=== PATIENT | female | born 1990 | race Caucasian/White ===

== ENCOUNTER 2017-08-18 19:55 | Emergency (ER) | payer SELFPAY ==
[~2017-08-18] VITALS: Ht 167.6 cm; Wt 77.1 kg
[2017-08-18] MEDS ORDERED: PERCOCET 7.5-31 EACH ORAL (20:07)
[2017-08-18 20:10] VITALS: BP 107/59
[2017-08-18] MEDS ORDERED: Dexamethasone 4mg/ml vial IVP ONE (20:30)
[2017-08-18] MEDS ORDERED: HYDROmorphone 1mg/ml Carpuject IM ONE (20:30)
--- NOTE | 2017-08-18 21:20 | Emergency Room Report ---
History of Present Illness General Chief Complaint: Vomiting Source: Patient (Fermin Pollock MD) Present Illness HPI 26-year-old female presents ED for evaluation. Patient complaining of flank pain with nausea and vomiting for the last 2 days. Pain is sharp, 10 out of 10 , nonradiating. History of Colfax's disease. States that she does not have pain medications at this time. States that when she has a bad flareup she usually requires IV hydration, Zofran, Decadron, pain medications. Denies fevers or chills. Denies chest pain or shortness of breath. No other aggravating relieving factors. Denies any other associated symptoms (Fermin Pollock MD) Allergies: Coded Allergies: PINEAPPLE (Verified Allergy, Unknown, 08/18/17) Patient History Past Medical History: other - addisons Past Surgical History: none Pertinent Family History: none Social History: Denies: smoking, alcohol use, drug use Last Menstrual Period: 2 weeks ago Now: No Immunizations: UTD Reviewed Nursing Documentation: PMH: Agreed; PSxH: Agreed (Fermin Pollock MD) Review of Systems All Other Systems: negative except mentioned in HPI (Fermin Pollock MD) Physical Exam Vital Signs Date Time Temp Pulse Resp B/P (MAP) Pulse Ox O2 Delivery O2 Flow Rate FiO2 08/18/17 20:01 97.9 110 18 107/59 97 Room Air 97.9 Sp02 EP Interpretation: reviewed, normal General Appearance: alert, GCS 15, non-toxic, mild distress Head: normocephalic, atraumatic Eyes: bilateral eye normal inspection, bilateral eye PERRL ENT: hearing grossly normal, normal pharynx, no angioedema, normal voice Neck: full range of motion, supple/symm/no masses Respiratory: chest non-tender, lungs clear, normal breath sounds, speaking full sentences Cardiovascular #1: regular rate, rhythm, no edema Cardiovascular #2: 2+ carotid (R), 2+ carotid (L), 2+ radial (R), 2+ radial (L) , 2+ dorsalis pedis (R), 2+ dorsalis pedis (L) Gastrointestinal: normal bowel sounds, non tender, soft, non-distended, no guarding, no rebound Rectal: deferred Genitourinary: normal inspection, no CVA tenderness Musculoskeletal: back normal, gait/station normal, normal range of motion, non- tender Neurologic: alert, oriented x3, responsive, motor strength/tone normal, sensory intact, speech normal Psychiatric: judgement/insight normal, memory normal, mood/affect normal, no suicidal/homicidal ideation Reflexes: 3+ bicep (R), 3+ bicep (L), 3+ tricep (R), 3+ tricep (L), 3+ knee (R) , 3+ knee (L) Skin: normal color, no rash, warm/dry, well hydrated Lymphatic: no adenopathy (Fermin Pollock MD) Medical Decision Making Diagnostic Impression: Primary Impression: Vomiting Qualified Codes: R11.2 - Nausea with vomiting, unspecified Additional Impressions: Chronic pain Qualified Codes: G89.4 - Chronic pain syndrome Opiate dependence Qualified Codes: F11.20 - Opioid dependence, uncomplicated UTI (urinary tract infection) Qualified Codes: N30.00 - Acute cystitis without hematuria ER Course Patient signout to me. She presents with exacerbation of chronic pain from her Colfax disease. She said that she still has her pain medication. She said that she doesn't get exacerbation very often. Labs unremarkable. Urine negative for ketones. Maybe infection. Checking [facility] system, she received a total so far 133 tablets of oxycodone in July and also 30 tablets of lorazepam. She keep asking for pain medication. No vomiting here. IM uncomfortable prescribing narcotics in light of her history of opioid addiction. She claimed that she is from [place] yet she has multiple prescriptions in [place]. (JASSI RUVALCABA M.D.) Last Vital Signs Date Time Temp Pulse Resp B/P (MAP) Pulse Ox O2 Delivery O2 Flow Rate FiO2 08/18/17 20:52 97.9 08/18/17 20:01 110 18 107/59 97 Room Air (Fermin Pollock MD) Status: improved (JASSI RUVALCABA M.D.) Disposition: HOME, SELF-CARE Condition: Stable Scripts Gabapentin* (GABAPENTIN*) 600 Mg Tablet 600 MG ORAL THREE TIMES A DAY, #90 TAB Prov: JASSI RUVALCABA M.D. 08/19/17 Ondansetron (Zofran) 4 Mg Tablet 4 MG ORAL Q6H PRN for Nausea & Vomiting, #30 TAB 0 Refills Prov: JASSI RUVALCABA M.D. 08/19/17 Cephalexin* (KEFLEX*) 500 Mg Capsule 500 MG ORAL TID, #21 CAP 0 Refills Prov: JASSI RUVALCABA M.D. 08/19/17 Referrals: NOT CHOSEN [facility]/,REFERRING (PCP) Patient Instructions: Nausea and Vomiting, Adult Additional Instructions: Follow-up with your Dr. in 2-3 days. Return if symptom worsen. Fermin Pollock MD Aug 18, 2017 21:20 JASSI RUVALCABA M.D. Aug 19, 2017 00:08
[2017-08-18] MEDS ORDERED: Promethazine HCl 25 MG in NS 55 ML IVPB ONE (21:30)
[2017-08-18 21:39] LABS: BASOPHILS % (AUTO) 1.6 % (0.0-2.0); EOSINOPHILS % (AUTO) 2.4 % (0.0-3.0); HEMATOCRIT 33.3 % (37.0-47.0); HEMOGLOBIN 11.1 G/DL (12.0-16.0); LYMPHOCYTES % (AUTO) 41.7 % (20.0-45.0); MEAN CORPUSCULAR VOLUME 92 FL (80-99); MONOCYTES % (AUTO) 8.8 % (1.0-10.0); NEUTROPHILS % (AUTO) 45.6 % (45.0-75.0); PLATELET COUNT 297 K/UL (150-450); RED BLOOD COUNT 3.61 M/UL (4.20-5.40); RED CELL DISTRIBUTION WIDTH 13.2 % (11.6-14.8); WHITE BLOOD COUNT 7.1 K/UL (4.8-10.8)
[2017-08-18 21:41] LABS: ANION GAP 8 mmol/L (5-15); BLOOD UREA NITROGEN 5 mg/dL (7-18); CARBON DIOXIDE 25 MMOL/L (21-32); CHLORIDE 109 MMOL/L (98-107); CREATININE 0.6 MG/DL (0.55-1.30); POTASSIUM 3.2 MMOL/L (3.5-5.1); SODIUM 142 MMOL/L (136-145)
[2017-08-18 21:45] LABS: ALANINE AMINOTRANSFERASE 25 U/L (12-78); ALBUMIN 3.4 G/DL (3.4-5.0); ALBUMIN/GLOBULIN RATIO 1.4 (1.0-2.7); ALKALINE PHOSPHATASE 63 U/L (46-116); ASPARTATE AMINO TRANSFERASE 17 U/L (15-37); BILIRUBIN,TOTAL 0.2 MG/DL (0.2-1.0)
[2017-08-18] MEDS ORDERED: Methocarbamol 500mg tab ORAL ONE (22:15)
[2017-08-18 22:39] VITALS: BP 98/51
[2017-08-18 22:42] LABS: APPEARANCE,URINE SLIGHTLY CLOUDY; BILIRUBIN, URINE NEGATIVE (NEGATIVE); COLOR,URINE PALE YELLOW; GLUCOSE, URINE (UA) NEGATIVE (NEGATIVE); KETONES,URINE NEGATIVE (NEGATIVE); LEUKOCYTE ESTERASE ,URINE 3+ (NEGATIVE); NITRITE,URINE NEGATIVE (NEGATIVE); PH,URINE 6.5 (4.5-8.0); PROTEIN,URINE 1+ (NEGATIVE); UROBILINOGEN,URINE NORMAL MG/DL (0.0-1.0)
[2017-08-18] MEDS ORDERED: cefTRIAXone 1 GM in NS 55 ML IVPB ONE (23:00)
[2017-08-19] MEDS ORDERED: ZOFRAN4 MG ORAL (00:07)
[2017-08-19] MEDS ORDERED: KEFLEX500 MG ORAL (00:07)
[2017-08-19] MEDS ORDERED: GABAPENTIN600 MG ORAL (00:08)
[2017-08-19 00:20] VITALS: BP 98/51
== END 2017-08-19 00:15 | disposition home or self-care (01) ==
LOC: EMR 20:30
DX: R11.2 Nausea with vomiting, unspecified (principal); G89.29 Other chronic pain; R10.9 Unspecified abdominal pain; F11.20 Opioid dependence, uncomplicated; E27.1 Primary adrenocortical insufficiency
CPT/HCPCS: 36415; 80053; 81003; 83690; 85025; 87086; 96372; 96374; 96375; 99284; J0696; J1100; J2405; J2550